=== PATIENT | male | born 1990 | race Caucasian/White ===

== ENCOUNTER 2016-06-02 00:55 | Emergency (ER) | payer BC, OTHER ==
[~2016-06-02] VITALS: Ht 167.6 cm; Wt 70.3 kg
--- NOTE | 2016-06-02 01:20 | NUR ---
PT CAME IN WITH C/O DIZZINESS AND H/A AFTER FALLING DOWN AND HITTING HEAD.PT STATES SLEPT AND HAD NO PROBLEM.BUT TODAY FEELING BAD. PT ALERT, ORIENTED X 4, NO RESP DISTRESS NOTED OR REPORTED UPON ASSESSMENT. MD AT BEDSIDE..
--- NOTE | 2016-06-02 02:01 | NUR ---
CLINICAL APPEALS AUDITOR AT BEDSIDE TO TAKE PT FOR SCAN, PT TAKEN VIA GURNEY... PT IS AWAKE, ALERT, NO RESP DISTRESS NOTED OR REPORTED UPON TRANSFER ASSESSMENT.
--- NOTE | 2016-06-02 02:23 | NUR ---
PT RETURNED WALKING FROM RADIOLOGY WITH ELECTRONICS DEPARTMENT MANAGER... NO RESP DISTRESS NOTED OR REPORTED UPON ASSESSMENT...
--- NOTE | 2016-06-02 02:51 | NUR ---
SEAFOOD CLERK ADVISED CT OF SPINE RESULTS DELAYED, SEAFOOD CLERK ADVISED SCAN JUST SENT TO BE INTERPRETED.... STATES CT OF HEAD REPORT SHOULD BE IN SOON...
--- NOTE | 2016-06-02 03:02 | NUR ---
CONTACTED [facility] FOR RESULTS FOR CT OF HEAD AND CERVICAL SPINE, ARTIST AND REPERTOIRE MANAGER STATES SHE WILL HAVE SCANS READ NEXT...
--- NOTE | 2016-06-02 03:10 | NUR ---
CT REPORT OF HEAD AND CERVICAL SPINE RECEIVED ....
--- NOTE | 2016-06-02 03:26 | NUR ---
Patient discharged to home in stable conditon. Written and verbal after care instructions given. Patient verbalizes understanding of instructions. Pt walked out of ER unassisted with belongings at side...
== END 2016-06-02 03:32 | disposition home or self-care (01) ==
LOC: ER 01:14
DX: R51 Headache (principal); M54.2 Cervicalgia; R42 Dizziness and giddiness
CPT/HCPCS: 70450; 72125; A4663